=== PATIENT | female | born 1995 | race Caucasian/White ===

== ENCOUNTER 2018-12-23 15:23 | Emergency (ER) | payer MEDICAID, OTHER ==
[~2018-12-23] VITALS: Ht 170.1 cm; Wt 110.0 kg
--- NOTE | 2018-12-23 16:16 | ED Trauma-Multisystem ---
General Chief Complaint: Trauma-Non Activation Stated Complaint: FALL/BACK PAIN Nursing Triage Note: Pt reports falling down approx 8 stairs this morning c/o mid back pain. Denies LOC Source of Information: Patient Exam Limitations: No Limitations History of Present Illness Date Seen by Provider: Dec 23, 2018 Time Seen by Provider: 16:15 Initial Comments To ER with reports of midline thoracic pain and headache. She fell down about 8 steps this morning. No other complaints of pain or injury. No vomiting no nausea no dizziness no loss of consciousness Occurred: Just Prior to Arrival Severity: Moderate Pain/Injury Location: Back Method of Injury: Fall Modifying Factors: Movement Loss of Consciousness: No Loss of Consciousness Associated Symptoms (Fall): Headache; No Neck Pain Allergies and Home Medications Allergies Coded Allergies: No Known Drug Allergies (Unverified , 12/23/18) Home Medications Methocarbamol 750 Mg Tablet, 750 MG PO Q4H PRN for BACK PAIN Prescribed by: OPAL SCOTT on 12/23/181656 Naproxen 500 Mg Tablet, 500 MG PO BID Prescribed by: OPAL SCOTT on 12/23/181656 Patient Home Medication List Home Medication List Reviewed: Yes Review of Systems Review of Systems Constitutional: see HPI Eyes: No Symptoms Reported Ears: No Symptoms Reported Nose: No Symptoms Reported Mouth: No Symptoms Reported Throat: No Symptoms to Report Respiratory: no symptoms reported Cardiovascular: No Symptoms Reported Genitourinary: no symptoms reported Musculoskeletal: no symptoms reported Skin: see HPI Psychiatric/Neurological: See HPI Past Sdlkexe-Ujimct-Qaotmk Hx Patient Social History Alcohol Use: Denies Use Recreational Drug Use: No Smoking Status: Current Everyday Smoker Type Used: Cigarettes 2nd Hand Smoke Exposure: No Recent Foreign Travel: No Contact w/Someone Who Travel: No Recent Infectious Disease Expo: No Recent Hopitalizations: No Seasonal Allergies Seasonal Allergies: No Past Medical History Surgeries: No Respiratory: No Cardiac: Yes Hypertension Neurological: No Genitourinary: No Gastrointestinal: Yes Gastroesophageal Reflux Musculoskeletal: No Endocrine: No HEENT: No Cancer: No Psychosocial: Yes Anxiety, Depression Integumentary: No Physical Exam Vital Signs Vital Signs - First Documented 12/23/18 15:49 Temp 36.8 Pulse 76 Resp 14 B/P (MAP) 118/79 (92) Pulse Ox 97 Height, Weight, BMI Height: '" Weight: lbs. oz. kg; 38.00 BMI Method: General Appearance: No Apparent Distress, WD/WN Head: No Evidence of Injury; No Active Bleeding, No Eddy's Sign, No Contusions Eyes: Bilateral Eye Normal Inspection, Bilateral Eye PERRL, Bilateral Eye EOMI Ears, Nose, Throat: Hearing Grossly Normal, No Evidence of ENT Injury Neck: Full Range of Motion, Normal Inspection; No Tender Lateral, No Tender Midline Respiratory: No Accessory Muscle Use, No Respiratory Distress Gastrointestinal: Normal Bowel Sounds, Non Tender, Soft Neurologic/Psychiatric: Alert, Oriented x3 Skin: Normal Color, Warm/Dry [place] Coma Score Best Eye Response ([place]): (4) Open Spontaneously Best Verbal Response ([place]): (5) Oriented Best Motor Response ([place]): (6) Obeys Commands [place] Total: 15 Progress/Results/Core Measures Results/Orders My Orders Orders - OPAL SCOTT APRN Ct Head Wo (12/23/18 16:13) Ct Thoracic Spine Wo (12/23/18 16:13) Vital Signs/I&O 12/23/18 15:49 Temp 36.8 Pulse 76 Resp 14 B/P (MAP) 118/79 (92) Pulse Ox 97 Blood Pressure Mean: 92 Departure Impression Primary Impression: Fall Qualified Codes: W19.XXXA - Unspecified fall, initial encounter Additional Impression: Back pain Disposition: 01 HOME, SELF-CARE Condition: Stable Admissions Decision to Admit Reason: Admit from ER (General) Departure-Patient Inst. Decision time for Depature: 16:53 Referrals: [facility]/ (PCP) Primary Care Physician CELESTE WYMAN APRN (Family) Primary Care Physician Patient Instructions: Contusion (DC) Scripts Methocarbamol (Robaxin-750) 750 Mg Tablet 750 MG PO Q4H PRN for BACK PAIN, #14 TAB Prov: OPAL SCOTT APRN 12/23/18 Naproxen (Naprosyn) 500 Mg Tablet 500 MG PO BID, #30 TAB 0 Refills Prov: OPAL SCOTT APRN 12/23/18 Work/School Note: Work Release Form Date Seen in the Emergency Department: Dec 23, 2018 Return to Work: Dec 24, 2018 OPAL SCOTT APRN Dec 23, 2018 16:16
--- NOTE | 2018-12-23 16:49 | Diagnostic Imaging Report ---
PROCEDURE: CT head without contrast. TECHNIQUE: Multiple contiguous axial images were obtained through the brain without the use of intravenous contrast. Auto Exposure Controls were utilized during the CT exam to meet ALARA standards for radiation dose reduction. INDICATION: Headache, head trauma. COMPARISON: None. FINDINGS: Ventricles are normal in size, shape, and position. There is no midline shift or mass effect. There is no hemorrhage or evidence of acute ischemia. No extra-axial fluid collection is seen. The bony calvarium is normal. Mastoids and paranasal sinuses are clear. IMPRESSION: Negative CT head. Dictated by: Dictated on workstation # [id number]
--- NOTE | 2018-12-23 16:52 | Diagnostic Imaging Report ---
PROCEDURE: CT thoracic spine without contrast. TECHNIQUE: Multiple axial computerized tomography images were obtained from the base of the thoracic spine to the vertex without intravenous contrast. Auto Exposure Controls were utilized during the CT exam to meet ALARA standards for radiation dose reduction. INDICATION: Fall. Back pain. COMPARISON: None. FINDINGS: Alignment of the thoracic column is normal. There is no subluxation, fracture or degeneration. There is no osseous lesion. No paraspinous mass is seen. The visualized ribs are grossly normal. IMPRESSION: No traumatic malalignment or fracture. Dictated by: Dictated on workstation # [id number]
[2018-12-23] MEDS ORDERED: METH-313 PO (16:57)
[2018-12-23] MEDS ORDERED: NAPR-1071 PO (16:57)
[2018-12-23 17:17] VITALS: BP 118/79
== END 2018-12-23 17:17 | disposition home or self-care (01) ==
LOC: ER 15:24
DX: M54.9 Dorsalgia, unspecified (principal); I10 Essential (primary) hypertension; F41.9 Anxiety disorder, unspecified; F32.9 Major depressive disorder, single episode, unspecified; K21.9 Gastro-esophageal reflux disease without esophagitis; R40.2142 Coma scale, eyes open, spontaneous, at arrival to emergency department; R40.2252 Coma scale, best verbal response, oriented, at arrival to emergency department; R40.2362 Coma scale, best motor response, obeys commands, at arrival to emergency department; F17.210 Nicotine dependence, cigarettes, uncomplicated; W10.9XXA Fall (on) (from) unspecified stairs and steps, initial encounter
CPT/HCPCS: 70450; 72128

== ENCOUNTER 2019-01-24 13:16 | Emergency (ER) | payer MEDICAID ==
[~2019-01-24] VITALS: Ht 170 cm; Wt 109.0 kg
[~2019-01-24 13:16] MED LIST: METH-313 PO; NAPR-1071 PO
--- NOTE | 2019-01-24 13:47 | ED General ---
General Chief Complaint: Dizziness/Syncope Stated Complaint: WEAKNESS / DIZZY Nursing Triage Note: THE PT IS AMBULATORY TO THE ROOM WITHOUT DIFFICULTY. NO DISTRESS IS SEEN ON ARRIVAL LOC IS NORMAL FOR THE PT. THE PT C/O OF DIZZINESS. Nursing Sepsis Screen: No Definite Risk Source of Information: Patient Exam Limitations: No Limitations (VITALY SANCHES STUDENT) History of Present Illness Date Seen by Provider: Jan 24, 2019 Time Seen by Provider: 13:30 Initial Comments Patient presents to the ED today with a 3 day history of dizziness and weakness to the point where she feels she may fall over. She recently was prescribed Propranolol to treat her anxiety but has never been diagnosed with HTN. She states the weakness and dizziness gets worse with any activity but gets better when laying down. She denies any other associated symptoms. Timing/Duration: 3-4 Days Severity: Mild Modifying Factors: improves with Rest Associated Systoms: Weakness, Other (dizziness) (VITALY SANCHES STUDENT) Allergies and Home Medications Allergies Coded Allergies: No Known Drug Allergies (Unverified , 12/23/18) Home Medications Methocarbamol 750 Mg Tablet, 750 MG PO Q4H PRN for BACK PAIN Prescribed by: OPAL SCOTT on 12/23/181656 Naproxen 500 Mg Tablet, 500 MG PO BID Prescribed by: OPAL SCOTT on 12/23/18 1657 Patient Home Medication List Home Medication List Reviewed: Yes (SARAH EDWARDS MD) Review of Systems Review of Systems Constitutional: see HPI EENTM: no symptoms reported Respiratory: no symptoms reported Cardiovascular: no symptoms reported Gastrointestinal: no symptoms reported Genitourinary: no symptoms reported Musculoskeletal: see HPI Skin: no symptoms reported Psychiatric/Neurological: See HPI, Depressed Hematologic/Lymphatic: No Symptoms Reported Immunological/Allergic: no symptoms reported (VITALY SANCHES STUDENT) EENTM: blurred vision, double vision (SARAH EDWARDS MD) All Other Systems Reviewed Negative Unless Noted: Yes (SARAH EDWARDS MD) Past Sqqhxju-Dumerj-Wxsfby Hx Past Med/Social Hx: Reviewed Nursing Past Med/Soc Hx (SARAH EDWARDS MD) Patient Social History Type Used: Cigarettes 2nd Hand Smoke Exposure: No Recent Foreign Travel: No Contact w/Someone Who Travel: No Recent Infectious Disease Expo: No Recent Hopitalizations: No Physical Abuse: No Sexual Abuse: No Mistreated: No Fear: No (VITALY SANCHES STUDENT) Seasonal Allergies Seasonal Allergies: No (VITALY SANCHES STUDENT) Past Medical History Surgeries: No Respiratory: No Cardiac: No Hypertension Neurological: No Genitourinary: No Gastrointestinal: Yes Gastroesophageal Reflux Musculoskeletal: No Endocrine: No HEENT: No Cancer: No Psychosocial: Yes Anxiety, Depression Integumentary: No (VITALY SANCHES STUDENT) Family Medical History Reviewed Nursing Family Hx (SARAH EDWARDS MD) Heart Disease, Cancer, Hypertension (SARAH EDWARDS MD) Physical Exam Vital Signs Vital Signs - First Documented 01/24/19 13:34 Temp 35.2 Pulse 93 Resp 16 B/P (MAP) 123/89 (100) Pulse Ox 98 (SARAH EDWARDS MD) Vital Signs Capillary Refill : Less Than 3 Seconds (VITALY SANCHES) Height, Weight, BMI Height: '" Weight: lbs. oz. kg; 37.00 BMI Method: General Appearance: No Apparent Distress, WD/WN Eyes: Bilateral Eye Normal Inspection, Bilateral Eye PERRL, Bilateral Eye EOMI HEENT: PERRL/EOMI, Pharynx Normal Respiratory: Chest Non Tender, Lungs Clear, Normal Breath Sounds, No Accessory Muscle Use, No Respiratory Distress Cardiovascular: Regular Rate, Rhythm, No Edema, No Gallop, No JVD, No Murmur, Normal Peripheral Pulses Gastrointestinal: Normal Bowel Sounds, No Organomegaly, No Pulsatile Mass, Non Tender, Soft Back: Normal Inspection, No CVA Tenderness, No Vertebral Tenderness Extremity: Normal Inspection Neurologic/Psychiatric: Alert, Oriented x3, No Motor/Sensory Deficits, Normal 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, 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 as Tested Skin: Normal Color, Warm/Dry Lymphatic: No Adenopathy (VITALY SANCHES STUDENT) General Appearance: No Apparent Distress, WD/WN HEENT: PERRL/EOMI, Pharynx Normal Neck: Non Tender, Supple Respiratory: Lungs Clear, Normal Breath Sounds Cardiovascular: Regular Rate, Rhythm, No Murmur Gastrointestinal: Non Tender, Soft Back: Normal Inspection, No CVA Tenderness, No Vertebral Tenderness Extremity: Normal Range of Motion, Non Tender Neurologic/Psychiatric: Alert, Oriented x3, No Motor/Sensory Deficits Skin: Normal Color, Warm/Dry (SARAH EDWARDS MD) Procedures/Interventions Discussed Risk,Benefits: Yes Patient Consents: Yes Position: Lying, L3-4, Right Sterile Technique: Yes Opening Pressure: 28 Fluid Color: clear Size of Disposal Tray Used: Adult difficult due to body habitus and traumatic tap noted. Tolerated procedure (SARAH EDWARDS MD) Progress/Results/Core Measures Suspected Sepsis Recent Fever Within 48 Hours: No Infection Criteria Present: None New/Unexplained Altered Menta: No Sepsis Screen: No Definite Risk SIRS Temperature: Pulse: 93 Respiratory Rate: 16 Blood Pressure 123 /89 Mean: 100 (VITALY SANCHES PA STUDENT) SIRS Laboratory Tests 01/24/19 14:20: White Blood Count 8.2 Laboratory Tests 01/24/19 14:20: Creatinine 0.72, Platelet Count 256, Total Bilirubin 0.3 (SARAH EDWARDS MD) Results/Orders Lab Results Laboratory Tests Test 01/24/19 14:00 01/24/19 14:20 01/24/19 16:20 Range/Units Urine Color YELLOW Urine Clarity CLEAR Urine pH 6 5-9 Urine Specific [place] 1.010 L 1.016-1.022 Urine Protein NEGATIVE NEGATIVE Urine Glucose (UA) NEGATIVE NEGATIVE Urine Ketones NEGATIVE NEGATIVE Urine Nitrite NEGATIVE NEGATIVE Urine Bilirubin NEGATIVE NEGATIVE Urine Urobilinogen NORMAL NORMAL MG/DL Urine Leukocyte Esterase NEGATIVE NEGATIVE Urine RBC (Auto) NEGATIVE NEGATIVE Urine RBC NONE /HPF Urine WBC NONE /HPF Urine Squamous Epithelial Cells RARE /HPF Urine Crystals NONE /LPF Urine Bacteria TRACE /HPF Urine Casts NONE /LPF Urine Mucus NEGATIVE /LPF Urine Culture Indicated NO White Blood Count 8.2 4.3-11.0 10^3/uL Red Blood Count 4.44 4.35-5.85 10^6/uL Hemoglobin 13.1 11.5-16.0 G/DL Hematocrit 40 35-52 % Mean Corpuscular Volume 89 80-99 FL Mean Corpuscular Hemoglobin 30 25-34 PG Mean Corpuscular Hemoglobin Concent 33 32-36 G/DL Red Cell Distribution Width 13.4 10.0-14.5 % Platelet Count 256 130-400 10^3/uL Mean Platelet Volume 11.0 H 7.4-10.4 FL Neutrophils (%) (Auto) 69 42-75 % Lymphocytes (%) (Auto) 23 12-44 % Monocytes (%) (Auto) 7 0-12 % Eosinophils (%) (Auto) 2 0-10 % Basophils (%) (Auto) 1 0-10 % Neutrophils # (Auto) 5.6 1.8-7.8 X 10^3 Lymphocytes # (Auto) 1.9 1.0-4.0 X 10^3 Monocytes # (Auto) 0.5 0.0-1.0 X 10^3 Eosinophils # (Auto) 0.1 0.0-0.3 10^3/uL Basophils # (Auto) 0.0 0.0-0.1 10^3/uL Sodium Level 141 135-145 MMOL/L Potassium Level 4.2 3.6-5.0 MMOL/L Chloride Level 108 H 98-107 MMOL/L Carbon Dioxide Level 22 21-32 MMOL/L Anion Gap 11 5-14 MMOL/L Blood Urea Nitrogen 7 7-18 MG/DL Creatinine 0.72 0.60-1.30 MG/DL Estimat Glomerular Filtration Rate > 60 BUN/Creatinine Ratio 10 Glucose Level 86 70-105 MG/DL Calcium Level 8.9 8.5-10.1 MG/DL Corrected Calcium 8.7 8.5-10.1 MG/DL Total Bilirubin 0.3 0.1-1.0 MG/DL Aspartate Amino Transf (AST/SGOT) 17 5-34 U/L Alanine Aminotransferase (ALT/SGPT) 24 0-55 U/L Alkaline Phosphatase 67 40-136 U/L Total Protein 6.7 6.4-8.2 GM/DL Albumin 4.2 3.2-4.5 GM/DL Thyroid Stimulating Hormone (TSH) 3.04 0.35-4.94 UIU/ML CSF Tube Number 4 CSF Appearance CLEAR CSF Color COLORLESS CSF WBC 0 0-5 CELLS CSF RBC 10 H 0-0 CELLS CSF Lymphocytes % CSF Mononuclear WBCs % CSF Polynuclear WBCs % CSF Glucose 61 50-80 MG/DL CSF Total Protein 28 15-40 MG/DL (SARAH EDWARDS MD) My Orders Orders - SARAH EDWARDS MD Urine Bedside (01/24/19 13:49) Ekg Tracing (01/24/19 13:49) Cbc With Automated Diff (01/24/19 13:49) Comprehensive Metabolic Panel (01/24/19 13:49) Thyroid Stimulating Hormone (10/26/19 13:49) Ua Culture If Indicated (01/24/19 13:49) Ed Iv/Invasive Line Start (01/24/19 13:49) Lactated Ringers (Lr 1000 Ml Iv Solution (01/24/19 13:49) Ct Head Wo (01/24/19 14:09) Lidocaine/Epi 2% 1:100,000 (Xylocaine/Ep (01/24/19 16:00) Csf Cell Count (01/24/19 15:52) Csf Glucose (01/24/19 15:52) Csf Total Protein (01/24/19 15:52) Csf Culture (01/24/19 15:52) Virus Culture (01/24/19 15:52) (SARAH EDWARDS MD) Medications Given in ED Current Medications Medications Dose Ordered Sig/Shade Route Start Time Stop Time Status Last Admin Dose Admin Lactated Ringer's 1,000 ml @ 0 mls/hr Q0M ONCE IV 01/24/19 13:49 01/24/19 13:51 DC 01/24/19 14:18 1,000 MLS/HR Lidocaine/ Epinephrine 20 ml ONCE ONCE INJ 01/24/19 16:00 01/24/19 16:01 DC 01/24/19 16:10 20 ML (SARAH EDWARDS MD) Vital Signs/I&O 01/24/19 13:34 Temp 35.2 Pulse 93 Resp 16 B/P (MAP) 123/89 (100) Pulse Ox 98 (SARAH EDWARDS MD) Vital Signs/I&O Capillary Refill : Less Than 3 Seconds (VITALY SANCHES PA STUDENT) Blood Pressure Mean: 100 Progress Note : Progress Note I have seen and evaluated the patient and agree with above except as indicated. Have directed the plan of care. Patient is here with persistent dizziness, weakness and now with some blurred vision over the last several days. She's had a: No work. She states overall she has not felt well and has been quite fatigued and has been sleeping quite a bit. She is not sure what is going on. She was seen at an urgent care clinic yesterday and started on antibiotics for a urinary tract infection. She has taken 3 doses of that and it has not helped. Denies nausea or vomiting. Feels fatigued. Exam as above. Plan for IV, LR 1 L bolus, labs, EKG and CT head. 1554: CT head negative. Patient's has symptoms of dizziness, headache, blurred vision and meets age and body habitus for potential for pseudotumor cerebri. This is discussed with the patient. Given those tolu rns, lumbar puncture would be indicated. This was discussed with the patient. After thorough discussion of risk and benefits, patient has decided she would like to do lumbar puncture. Consent signed and charted. We will prepare for lumbar puncture. CT head is negative. 1739: Lumbar puncture is complete with some difficulty. This was a traumatic tap and there are a few red cells noted but no white cells and Gram stain is negative. Opening pressure was 28 indicating elevated intracranial pressure and pseudotumor cerebri. I discussed the case with Dr. Clemente at the [facility]. The clinic will see the patient at 1245 on Saturday for evaluation for papilledema. We discussed starting Diamox but will hold pending that evaluation. Patient is feeling better. D izziness has resolved with fluid removal. I did discuss with the patient regarding her weight and she does admit that she had at least a 30 pound weight gain over the past couple months but has recently lost some of that now that she started working again. She is okay with going to the clinic. I also discussed the case with Dr. Pierre on-call for [facility]. She will help establish appointment at [facility] clinic on Saturday as well for follow-up. All of this was discussed with the patient who agrees. Discharged home with return precautions. Patient verbalize understanding instructions and agreement with plan. (SARAH EDWARDS MD) ECG Initial ECG Impression Date: Jan 24, 2019 Initial ECG Impression Time: 14:05 Initial ECG Rate: 72 Initial ECG Rhythm: Normal Sinus Initial ECG Impression: Normal Initial ECG Comparisson: No Previous ECG Available Comment Sinus rhythm with normal axis. No evidence of ST elevation DC. No previous available for comparison. Interpreted by me. (SARAH EDWARDS MD) Diagnostic Imaging Diagonstic Imaging: CT Plain Films/CT/US/NM/MRI: head Comments NAME: BARDALESJERMAINE DSOUZA Radha MED REC#: [id number] PT STATUS: REG ER : 1995 PHYSICIAN: SARAH EDWARDS MD ADMIT DATE: 01/24/19/ER Signed Date of Exam: 01/24/19 CT HEAD WO PROCEDURE: CT head without contrast. TECHNIQUE: Multiple contiguous axial images were obtained through the brain without the use of intravenous contrast. Auto Exposure Controls were utilized during the CT exam to meet ALARA standards for radiation dose reduction. INDICATION: Dizziness for 4 days. History of fall. FINDINGS: The ventricles are normal in size, shape and position. There is no acute parenchymal hemorrhage, edema or mass. There is no extra-axial mass or hemorrhage. There is no skull fracture. IMPRESSION: Normal CT of the head. Dictated by: Dictated on workstation # [id number] Dict: 01/24/19 1447 Trans: 01/24/19 1516 Interpreted by: JANNA VILLALTA MD Electronically signed by: JANNA VILLALTA MD 01/24/19 1516 (SARAH EDWARDS MD) Departure Impression Primary Impression: Idiopathic intracranial hypertension Disposition: 01 HOME, SELF-CARE Condition: Improved Departure-Patient Inst. Decision time for Depature: 17:43 (SARAH EDWARDS MD) Referrals: [facility] [place] (PCP) Primary Care Physician CELESTE WYMAN APRN (Family) Primary Care Physician RHETT BAH OD Patient Instructions: Idiopathic Intracranial Hypertension (DC) Add. Discharge Instructions: All discharge instructions reviewed with patient and/or family. Voiced understanding. Use a low-sodium diet. It is important that you monitor and maintain a healthy weight as this can reduce the concerns related to the idiopathic intracranial hypertension (pseudotumor cerebri). You need to follow-up at the [facility] eye clinic on Saturday at 1245. You need to follow-up at [facility] on Saturday as well. Call the clinic in the morning for appointment time. Do not miss the eye appointment. Return for worse pain, increasing dizziness, vomiting, weakness, breathing problems, fever or other concerns as needed. Copy Copies To 1: RHETT BAH OD Copies To 2: AUTUMN CARDOZA BRODIE PA STUDENT Jan 24, 2019 13:47 SARAH EDWARDS MD Jan 24, 2019 14:15
[2019-01-24] MEDS ORDERED: LACTATED RINGERS 1,000 ML IV ONE (13:49)
[2019-01-24 14:13] LABS: BILIRUBIN,URINE NEGATIVE (NEGATIVE); CLARITY,URINE CLEAR; COLOR,URINE YELLOW; GLUCOSE, URINE (UA) NEGATIVE (NEGATIVE); KETONES,URINE NEGATIVE (NEGATIVE); LEUKOCYTE ESTERASE ,URINE NEGATIVE (NEGATIVE); NITRITE,URINE NEGATIVE (NEGATIVE); PH,URINE 6 (5-9); PROTEIN,URINE NEGATIVE (NEGATIVE)
[2019-01-24 14:22] LABS: BACTERIA,URINE TRACE /HPF; SQUAMOUS EPITHELIAL CELL,UR RARE /HPF
[2019-01-24 14:24] LABS: BASOPHILS % (AUTO) 1 % (0-10); EOSINOPHILS # (AUTO) 0.1 10^3/uL (0.0-0.3); EOSINOPHILS % (AUTO) 2 % (0-10); HEMATOCRIT 40 % (35-52); HEMOGLOBIN 13.1 G/DL (11.5-16.0); LYMPHOCYTES # (AUTO) 1.9 X 10^3 (1.0-4.0); LYMPHOCYTES % (AUTO) 23 % (12-44); MEAN CORPUSCULAR HEMOGLOBIN 30 PG (25-34); MEAN CORPUSCULAR HGB CONC 33 G/DL (32-36); MEAN CORPUSCULAR VOLUME 89 FL (80-99); MONOCYTES # (AUTO) 0.5 X 10^3 (0.0-1.0); MONOCYTES % (AUTO) 7 % (0-12); NEUTROPHILS # (AUTO) 5.6 X 10^3 (1.8-7.8); NEUTROPHILS % (AUTO) 69 % (42-75); PLATELET COUNT 256 10^3/uL (130-400); RED CELL DISTRIBUTION WIDTH 13.4 % (10.0-14.5); WHITE BLOOD COUNT 8.2 10^3/uL (4.3-11.0)
[2019-01-24 14:44] LABS: ALANINE AMINOTRANSFERASE 24 U/L (0-55); ALBUMIN 4.2 GM/DL (3.2-4.5); ALKALINE PHOSPHATASE 67 U/L (40-136); BILIRUBIN,TOTAL 0.3 MG/DL (0.1-1.0); BUN/CREATININE RATIO 10; CALCIUM 8.9 MG/DL (8.5-10.1); CARBON DIOXIDE 22 MMOL/L (21-32); CHLORIDE 108 MMOL/L (98-107); CREATININE SERUM 0.72 MG/DL (0.60-1.30); GFR ESTIMATED > 60; GLUCOSE 86 MG/DL (70-105); POTASSIUM 4.2 MMOL/L (3.6-5.0); SODIUM 141 MMOL/L (135-145); TOTAL PROTEIN 6.7 GM/DL (6.4-8.2)
--- NOTE | 2019-01-24 14:59 | Diagnostic Imaging Report ---
PROCEDURE: CT head without contrast. TECHNIQUE: Multiple contiguous axial images were obtained through the brain without the use of intravenous contrast. Auto Exposure Controls were utilized during the CT exam to meet ALARA standards for radiation dose reduction. INDICATION: Dizziness for 4 days. History of fall. FINDINGS: The ventricles are normal in size, shape and position. There is no acute parenchymal hemorrhage, edema or mass. There is no extra-axial mass or hemorrhage. There is no skull fracture. IMPRESSION: Normal CT of the head. Dictated by: Dictated on workstation # [id number]
[2019-01-24] MEDS ORDERED: LIDOCAINE/EPI 2% 1:100,00 (XYLOCAINE) 20 ML VIAL INJ ONE (16:00)
[2019-01-24 16:43] LABS: APPEARANCE,CSF CLEAR; COLOR,CSF COLORLESS
[2019-01-24 16:44] LABS: CSF TUBE NUMBER 4; RED BLOOD CELL,CSF 10 CELLS (0-0); WHITE BLOOD CELL,CSF 0 CELLS (0-5)
[2019-01-24 17:05] LABS: CSF GLUCOSE 61 MG/DL (50-80); CSF TOTAL PROTEIN 28 MG/DL (15-40)
--- NOTE | 2019-01-24 17:31 | NUR ---
DR EDWARDS NOTIFIED OF LAB CALLING WITH A NO BACTERIA ON GRAM STAIN REPORT.
[2019-01-24 17:45] VITALS: BP 116/67
--- NOTE | 2019-01-25 17:20 | NUR ---
This nurse pulled up pt's chart as pt called requesting a work note. Work note faxed to pt's employer at pt's request.
== END 2019-01-24 17:52 | disposition home or self-care (01) ==
LOC: EDUNIT# 13:16 → ER 13:17
DX: G93.2 Benign intracranial hypertension (principal); I10 Essential (primary) hypertension; K21.9 Gastro-esophageal reflux disease without esophagitis; F41.9 Anxiety disorder, unspecified; F32.9 Major depressive disorder, single episode, unspecified; Z82.49 Family history of ischemic heart disease and other diseases of the circulatory system
CPT/HCPCS: 36415; 70450; 80053; 81000; 82945; 84157; 84443; 84703; 85025; 87070; 87205; 87252; 89051; 93005; 96360

== ENCOUNTER 2019-01-29 20:37 | Emergency (ER) | payer MEDICAID ==
[~2019-01-29] VITALS: Ht 170.2 cm; Wt 108.0 kg
--- NOTE | 2019-01-29 21:14 | ED Headache ---
General Chief Complaint: General Problems/Pain Stated Complaint: DX W/ IDIOPATHIC INTRACRANIAL HT/CONTINUED PAIN Nursing Triage Note: Pt amb to [facility] with c/o headache. Pt reports to have been seen in this ED on 01/24/19 where she was diagnosed with idiopathic intercranial hypertension. Pt reports continued headache. Pt denies visual and balance difficulties. 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 Nursing Sepsis Screen: No Definite Risk Source: patient Exam Limitations: no limitations History of Present Illness Date Seen by Provider: Jan 29, 2019 Time Seen by Provider: 20:48 Initial Comments Patient presents to ER by private conveyance with chief complaint of headache for the past 3-4 days. She's been using ibuprofen and now naproxen as well as Tylenol routinely. She does not give much relief. She was here a week ago seen in the ER and told she might have pseudotumor cerebri. She followed up with her primary care doctor is working on setting her up with a neurologist. They started her on 50 mg topiramate. She has not had much relief from that. She's has a long history of headaches dizziness and falls. She is having occasional visual disturbances but none presently. She saw Dr. Dumont, Optometry and he said she had a hint of papilledema but nothing significant. She is attempting a low sodium diet. She has not lost any weight. Allergies and Home Medications Allergies Coded Allergies: No Known Drug Allergies (Unverified , 12/23/18) Home Medications Methocarbamol 750 Mg Tablet, 750 MG PO Q4H PRN for BACK PAIN Prescribed by: OPAL SCOTT on 12/23/18 165 Naproxen 500 Mg Tablet, 500 MG PO BID Prescribed by: OPAL SCOTT on 12/23/18 165 Patient Home Medication List Home Medication List Reviewed: Yes Review of Systems Review of Systems Constitutional: see HPI; No chills, No fever Eyes: See HPI; Denies Blindness, Denies Blurred Vision, Denies Drainage Ears, Nose, Mouth, Throat: denies ear pain, denies ear discharge Respiratory: No cough, No short of breath Cardiovascular: No chest pain, No edema Gastrointestinal: No constipation, No diarrhea Genitourinary: No discharge, No dysuria Musculoskeletal: No back pain, No joint pain Past Kmuibnh-Largxp-Akmhpc Hx Patient Social History Alcohol Use: Denies Use Recreational Drug Use: No Smoking Status: Current Everyday Smoker Type Used: Cigarettes 2nd Hand Smoke Exposure: No Recent Foreign Travel: No Contact w/Someone Who Travel: No Recent Infectious Disease Expo: No Recent Hopitalizations: No Seasonal Allergies Seasonal Allergies: No Past Medical History Surgeries: No Respiratory: No Cardiac: No Hypertension Neurological: No (Idiopathic Intercranial Hypertension ) Genitourinary: No Gastrointestinal: Yes Gastroesophageal Reflux Musculoskeletal: No Endocrine: No HEENT: No Cancer: No Psychosocial: Yes Anxiety, Depression Integumentary: No Family Medical History Heart Disease, Cancer, Hypertension Physical Exam Vital Signs Vital Signs - First Documented 01/29/19 20:47 Temp 36.9 Pulse 87 Resp 17 B/P (MAP) 133/82 (99) Pulse Ox 99 Capillary Refill : Less Than 3 Seconds Height, Weight, BMI Height: '" Weight: lbs. oz. kg; 37.00 BMI Method: General Appearance: WD/WN, no apparent distress HEENT: PERRL/EOMI, pharynx normal, other (pupils 4 mm bilateral equal reactive to light and accommodation. Round. No papilledema seen on funduscopic exam. No AV nicking.) Neck: non-tender, full range of motion Cardiovascular: normal peripheral pulses, regular rate, rhythm Respiratory: normal breath sounds, no respiratory distress Psychiatric: alert, oriented x 3 Crainal Nerves: normal hearing, normal speech, PERRL Coordination/Gait: normal finger to nose, normal gait Motor/Sensory: no motor deficit, no sensory deficit, no pronator drift Skin: normal color, warm/dry Progress/Results/Core Measures Results/Orders My Orders Orders - ANGI GUO Ketorolac Injection (Toradol Injection) (01/29/19 21:15) Acetazolamide Tablet (Diamox Tablet) (01/29/19 21:15) Acetaminophen Tablet (Tylenol Tablet) (01/29/19 21:15) Vital Signs/I&O 01/29/19 20:47 Temp 36.9 Pulse 87 Resp 17 B/P (MAP) 133/82 (99) Pulse Ox 99 Blood Pressure Mean: 99 POS Progress Progress Note : Time: 21:15 Progress Note Toradol, Tylenol and acetazolamide. We have counseled her extensively on sodium restriction and weight loss diets. Encourage her to follow up with neurology. Departure Impression Primary Impression: Pseudotumor cerebri syndrome Additional Impression: Headache Qualified Codes: R51 - Headache Disposition: 01 HOME, SELF-CARE Condition: Stable Departure-Patient Inst. Decision time for Depature: 21:24 Referrals: [facility] (PCP) Primary Care Physician CELESTE WYMAN APRN (Family) Primary Care Physician Patient Instructions: Idiopathic Intracranial Hypertension (DC) Add. Discharge Instructions: Avoid sodium in your diet. Do not add salt. Do not eat food from boxes or pr ocess food from cans. Do not note from restaurants. Cook fresh food and take it with you. Seek to lose weight by calorie restriction and exercising. Your primary care doctor about referral to a dietitian. Start taking acetazolamide 125 mg daily. Follow-up with primary care. All discharge instructions reviewed with patient and/or family. Voiced understanding. Scripts Acetazolamide (Acetazolamide) 125 Mg Tablet 125 MG PO DAILY for 14 Days, #14 TAB 0 Refills Prov: ANGI GUO 01/29/19 ANGI GUO Jan 29, 2019 21:14 POS
[2019-01-29] MEDS ORDERED: acetaZOLAMIDE 250 MG (DIAMOX) TAB PO ONE (21:15)
[2019-01-29] MEDS ORDERED: ACETAMINOPHEN 500 MG TAB (TYLENOL) PO ONE (21:15)
[2019-01-29] MEDS ORDERED: KETOROLAC 60 MG/2 ML VIAL IM ONE (21:15)
[2019-01-29] MEDS ORDERED: ACET125T2 PO (21:29)
[2019-01-29] MEDS ORDERED: KETOROLAC 30 MG/ML VIAL IM ONE (21:30)
[2019-01-29 21:47] VITALS: BP 133/82
--- OUTSIDE RECORDS SUMMARY | 2019-02-22 16:26 | XMS REPORT | Continuity of Care Document ---
Author Organization Unknown POS Address Unknown SP Phone Unavailable SP Allergies Active Description Code Type Severity POS Reaction Onset Reported/Identified POS to Patient Clinical Status POS Yes No Known Drug Allergies [id number] Drug SP Unknown N/A 12/23/2018 SP SP Medications There is no data. Problems Date Dx Coded Attending Type Code POS Diagnosed By POS 01/24/2019 SARAH EDWARDS MD Ot F32.9 SP MAJOR DEPRESSIVE DISORDER, SINGLE EPISOD SP 01/24/2019 SARAH EDWARDS MD Ot F41.9 SP ANXIETY DISORDER, UNSPECIFIED SP 01/24/2019 SARAH EDWARDS MD Ot G93.2 SP BENIGN INTRACRANIAL HYPERTENSION SP 01/24/2019 SARAH EDWARDS MD Ot I10 SP ESSENTIAL (PRIMARY) HYPERTENSION SP 01/24/2019 SARAH EDWARDS MD Ot K21.9 SP GASTRO-ESOPHAGEAL REFLUX DISEASE WITHOUT SP 01/24/2019 SARAH EDWARDS MD Ot R42 SP DIZZINESS AND GIDDINESS SP 01/24/2019 SARAH EDWARDS MD Ot Z82.49 SP FAMILY HX OF ISCHEM HEART DIS AND OTH DI SP 01/28/2019 SARAH EDWARDS MD Ot F32.9 SP MAJOR DEPRESSIVE DISORDER, SINGLE EPISOD SP 01/28/2019 SARAH EDWARDS MD Ot F41.9 SP ANXIETY DISORDER, UNSPECIFIED SP 01/28/2019 SARAH EDWARDS MD Ot G93.2 SP BENIGN INTRACRANIAL HYPERTENSION SP 01/28/2019 SARAH EDWARDS MD Ot I10 SP ESSENTIAL (PRIMARY) HYPERTENSION SP 01/28/2019 SARAH EDWARDS MD Ot K21.9 SP GASTRO-ESOPHAGEAL REFLUX DISEASE WITHOUT SP 01/28/2019 SARAH EDWARDS MD Ot R42 SP DIZZINESS AND GIDDINESS SP 01/28/2019 SARAH EDWARDS MD Ot Z82.49 SP FAMILY HX OF ISCHEM HEART DIS AND OTH DI SP 02/03/2019 BARRY GUO MDUS J Ot F17.210 SP NICOTINE DEPENDENCE, CIGARETTES, UNCOMPL SP 02/03/2019 ANGI GUO MD J Ot F32. 9 SP DEPRESSIVE DISORDER, SINGLE EPISOD SP 02/03/2019 BARRY GUO MDUS J Ot F41. 9 SP DISORDER, UNSPECIFIED SP 02/03/2019 BARRY GUO MDUS J Ot G93. 2 SP INTRACRANIAL HYPERTENSION SP 02/03/2019 BARRY GUO MDUS J Ot I10 SP (PRIMARY) HYPERTENSION SP 02/03/2019 ANGI GUO MD J Ot K21. 9 SPESOPHAGEAL REFLUX DISEASE WITHOUT SP 02/03/2019 ANGI GUO MD J Ot R51 SP SP 02/03/2019 ANGI GUO MD Ot Z82. 49 SP HX OF ISCHEM HEART DIS AND OTH DI SP 02/07/2019 ANGI GUO MD J Ot F17.210 SP NICOTINE DEPENDENCE, CIGARETTES, UNCOMPL SP 02/07/2019 ANGI GUO MD Ot F32. 9 SP DEPRESSIVE DISORDER, SINGLE EPISOD SP 02/07/2019 BARRY GUO MDUS J Ot F41. 9 SP DISORDER, UNSPECIFIED SP 02/07/2019 ANGI GUO MD Ot G93. 2 SP INTRACRANIAL HYPERTENSION SP 02/07/2019 ANGI GUO MD Ot I10 SP (PRIMARY) HYPERTENSION SP 02/07/2019 BARRY GUO MDUS Patricia Ot K21. 9 SPESOPHAGEAL REFLUX DISEASE WITHOUT SP 02/07/2019 ANGI GUO MD J Ot R51 SP SP 02/07/2019 ANGI GUO MD Ot Z82. 49 SP HX OF ISCHEM HEART DIS AND OTH DI SP Procedures There is no data. Results Test Result Range POS CMP - 10/15/18 12:16 POS GLUCOSE 74 mg/dL 65-99 SP UREA NITROGEN (BUN) 7 mg/dL 7-25 SP CREATININE 0.70 mg/dL 0.50-1.10 SP eGFR NON-AFR. BERMUDIAN 120 mL/min/1.73m2 > OR=60 SP eGFR 140 mL/min/1.73m2 > OR=60 SP BUN/CREATININE RATIO NOT APPLICABLE (calc) 6-22 SP SODIUM 141 mmol/L 135-146 SP POTASSIUM 4.5 mmol/L 3.5-5.3 SP CHLORIDE 105 mmol/L 98-110 SP CARBON DIOXIDE 26 mmol/L 20-32 SP CALCIUM 10.0 mg/dL 8.6-10.2 SP PROTEIN, TOTAL 6.9 g/dL 6.1-8.1 SP ALBUMIN 4.8 g/dL 3.6-5.1 SP GLOBULIN 2.1 g/dL (calc) 1.9-3.7 SP ALBUMIN/GLOBULIN RATIO 2.3 (calc) 1.0-2. 5 SP BILIRUBIN, TOTAL 0.4 mg/dL 0.2-1.2 SP ALKALINE PHOSPHATASE 58 U/L 33-115 SP AST 15 U/L 10-30 SP ALT 21 U/L 6-29 SP GC/CHLAMYDIA (SWAB OR URINE)-RAPID - 10:21 POS CHLAMYDIA TRACHOMATIS RNA, TMA NOT DETECTED NOT DETECTED SP NEISSERIA GONORRHOEAE RNA, TMA NOT DETECTED NOT DETECTED SP COMMENT NRG SP SUREPATH PAP RFX HPV mRNA E6/E7 - 10:21 POS CLINICAL INFORMATION: NRG SP LMP: NRG SP PREV. PAP: NRG SP PREV. BX: NRG SP SOURCE: Cervix NRG SP STATEMENT OF ADEQUACY: NRG SP INTERPRETATION/RESULT: NRG SP CUSTOMER SERVICE COORDINATOR: NRG SP COMMENT NRG SP Complete urinalysis with reflex to cultu re - 01/24/19 14:00 POS Urine color determination YELLOW NRG SP Urine clarity determination CLEAR NR G SP Urine pH measurement by test strip 6 5-9 SP Specific gravity of urine by test strip 1.010 1.016-1.022 SP Urine protein assay by test strip, semi-quantitative NEGATIVE SP NEGATIVE SP Urine glucose detection by automated test strip NE GATIVE SP Erythrocytes detection in urine sediment by light micr oscopy NEGATIVE SP NEGATIVE SP Urine ketones detection by automated test strip NE GATIVE SP Urine nitrite detection by test strip NEGATIVE NEGATIVE SP Urine total bilirubin detection by test strip NEGA TIVE SP Urine urobilinogen measurement by automated test strip (mass/volume) SP NORMAL SP Urine leukocyte esterase detection by dipstick NEG ATIVE SP Automated urine sediment erythrocyte cou nt by microscopy (number/high power SP NONE NRG SP Automated urine sediment leukocyte count by microscopy (number/high power field) SP NONE NRG SP Bacteria detection in urine sediment by light microsco py TRACE SP NRG SP Squamous epithelial cells detection in u rine sediment by light microscopy SP RARE NRG SP Crystals detection in urine sediment by light microsco py NONE SP NRG SP Casts detection in urine sediment by light microscopy NONE SP Mucus detection in urine sediment by light microscopy NEGATIVE SP NRG SP Complete urinalysis with reflex to culture NO NRG SP Complete blood count (CBC) with automate d white blood cell (WBC) differential - POS 14:20 Blood leukocytes automated count (number/volume) 8.2 10*3/uL POS 4.3-11.0 SP Blood erythrocytes automated count (number/volume) 4.44 10*6/uL SP 4.35-5.85 SP Venous blood hemoglobin measurement (mass/volume) 13.1 g/dL SP16.0 Blood hematocrit (volume fraction) 40 % 35-52 SP Automated erythrocyte mean corpuscular volume 89 [ foz_us] SP99 Automated erythrocyte mean corpuscular h emoglobin (mass per erythrocyte) SP 30 pg 25-34 SP Automated erythrocyte mean corpuscular h emoglobin concentration measurement SP 33 g/dL 32-36 SP Automated erythrocyte distribution width ratio 13. 4 % 10.0- SP Automated blood platelet count (count/volume) 256 10*3/uL SP400 Automated blood platelet mean volume measurement 11.0 [foz_us] SP 7.4-10.4 SP Automated blood neutrophils/100 leukocytes 69 % 42-75 SP Automated blood lymphocytes/100 leukocytes 23 % 12-44 SP Blood monocytes/100 leukocytes 7 % 0-12 SP Automated blood eosinophils/100 leukocytes 2 % 0-10 SP Automated blood basophils/100 leukocytes 1 % 0-10 SP Blood neutrophils automated count (number/volume) 5.6 10*3 SP7.8 Blood lymphocytes automated count (number/volume) 1.9 10*3 SP4.0 Blood monocytes automated count (number/volume) 0. 5 10*3 SP1.0 Automated eosinophil count 0.1 10*3/uL 0 .0-0.3 SP Automated blood basophil count (count/volume) 0.0 10*3/uL SP0.1 Comprehensive metabolic panel - 01/24/19 14:20 POS Serum or plasma sodium measurement (moles/volume) 141 mmol/L SP 135-145 SP Serum or plasma potassium measurement (moles/volume) 4.2 mmol/L SP 3.6-5.0 SP Serum or plasma chloride measurement (moles/volume) 108 mmol/L SP 98-107 SP Carbon dioxide 22 mmol/L 21-32 SP Serum or plasma anion gap determination (moles/volume) 11 mmol/L SP 5-14 SP Serum or plasma urea nitrogen measurement (mass/volume ) 7 mg/dL SP 7-18 SP Serum or plasma creatinine measurement (mass/volume) 0.72 mg/dL SP 0.60-1.30 SP Serum or plasma urea nitrogen/creatinine mass ratio 10 NRG SP Serum or plasma creatinine measurement w ith calculation of estimated glomerular SP rate > NRG SP Serum or plasma glucose measurement (mass/volume) 86 mg/dL SP105 Serum or plasma calcium measurement (mass/volume) 8.9 mg/dL SP10.1 Serum or plasma total bilirubin measurement (mass/volu me) 0.3 mg/dL SP 0.1-1.0 SP Serum or plasma alkaline phosphatase sheree surement (enzymatic activity/volume) SP 67 U/L 40-136 SP Serum or plasma aspartate aminotransfera se measurement (enzymatic SP 17 U/L 5-34 SP Serum or plasma alanine aminotransferase measurement (enzymatic activity/volume) SP 24 U/L 0-55 SP Serum or plasma protein measurement (mass/volume) 6.7 g/dL SP8.2 Serum or plasma albumin measurement (mass/volume) 4.2 g/dL SP4.5 CALCIUM CORRECTED 8.7 mg/dL 8.5-10.1 SP THYROID STIMULATING HORMONE - 01/24/19 1 4:20 POS THYROID STIMULATING HORMONE 3.04 u[iU]/mL 0.35-4.94 SP Cerebrospinal fluid cell count - 9 16:20 POS Cerebrospinal fluid appearance description CLEAR NRG SP Cerebrospinal fluid color identification COLORLESS NRG SP Cerebrospinal fluid leukocytes count (number/volume) 0 % 0-5 SP Cerebrospinal fluid erythrocytes count (number/volume) 10 % SP0 Manual cerebrospinal fluid lymphocytes/100 leukocytes TNP SP Manual cerebrospinal fluid mononuclear cells/100 leuko cytes TNP SP NRG SP Manual cerebrospinal fluid polymorphonuclear cells/100 leukocytes TNP SP NRG SP Cerebrospinal fluid cell count on specimen from last t ube collected 4 SP NRG SP Cerebrospinal fluid glucose measurement (mass/volume) - 01/24/19 16:20 POS Cerebrospinal fluid glucose measurement (mass/volume) 61 mg/dL SP 50-80 SP Cerebrospinal fluid protein measurement (mass/volume) - 01/24/19 16:20 POS Cerebrospinal fluid protein measurement (mass/volume) 28 mg/dL SP 15-40 SP Gram stain microscopy - 01/24/19 16:20 POS Gram stain microscopy REPORT CALLED TO IE IN ED AT 1730 BY LACY/KD SP NRG SP Bacterial cerebrospinal fluid culture - 01/24/19 16:20 POS Bacterial cerebrospinal fluid culture NG NRG SP Virus identification by culture - 16:20 POS QUANTITY OF GROWTH . NRG SP Virus identification by culture PROGRESS NRG SP Encounters ACCT No. Visit Date/Time Discharge Status POS Pt. Type Provider Facility Loc./Un it POS Complaint POS [id number] 01/23/2019 08:10:00 01/23/2019 23:59: 59 CLS SP Outpatient CELESTE WYMAN [facility] SP [id number] 10/22/2018 09:00:00 Document SPRegistration SP [id number] 10/15/2018 11:20:00 Document SPRegistration SP [id number] 02/17/2019 17:32:00 18:27:00 SP DIS Emergency OPAL SCOTT APRN [facility] ER DIZZINESS,WEAKNESS SP [id number] 01/29/2019 20:38:00 21:48:00 SP DIS Outpatient ANGI GUO MD 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
== END 2019-01-29 21:48 | disposition home or self-care (01) ==
LOC: EDUNIT# 20:37 → ER 20:38
DX: G93.2 Benign intracranial hypertension (principal); I10 Essential (primary) hypertension; F41.9 Anxiety disorder, unspecified; F32.9 Major depressive disorder, single episode, unspecified; K21.9 Gastro-esophageal reflux disease without esophagitis; F17.210 Nicotine dependence, cigarettes, uncomplicated; Z82.49 Family history of ischemic heart disease and other diseases of the circulatory system
CPT/HCPCS: 96372; 99284

== ENCOUNTER 2019-02-17 17:30 | Emergency (ER) | payer MEDICAID ==
[~2019-02-17] VITALS: Ht 170 cm; Wt 111.0 kg
[~2019-02-17 17:30] MED LIST changes: +ACET125T2 PO
--- NOTE | 2019-02-17 18:11 | ED General ---
General Chief Complaint: Dizziness/Syncope Stated Complaint: DIZZINESS,WEAKNESS Nursing Triage Note: PT STATES BEING DIZZY AGAIN, WAS SEEN HERE ABOUT A MONTH AGO, IS WAITING TO SEE A NEUROLOGIST. HAS HAD FLUID DRAINED FROM HER SPINAL CORD IN THE PAST. Nursing Sepsis Screen: No Definite Risk Source of Information: Patient Exam Limitations: No Limitations History of Present Illness Date Seen by Provider: Feb 17, 2019 Time Seen by Provider: 18:11 Initial Comments To ER with reports of dizziness and slight frontal headache. She was seen here a bout a month ago, diagnosed with idiopathic intracranial hypertension following symptoms consistent with that and a diagnostic lumbar puncture with opening pressure of 28. She was then seen here a few weeks ago, on 01/30/19 and given a prescription for 14 days of acetazolamide. She reports that after 3 days she had improvement in symptoms and after about 5 days she had almost complete resolution of her symptoms. She comes back in today with being out of her acetazolamide and recurrence of dizziness and slight frontal headache. She is scheduled to see neurology in [place] on 12 March, that the soonest she could be seen. She states that she has kids at home and a job and cannot continue to miss work due to her symptoms and would like this refilled. Timing/Duration: 2-3 Days Severity: Moderate Associated Systoms: Headaches, Other Allergies and Home Medications Allergies Coded Allergies: No Known Drug Allergies (Unverified , 12/23/18) Home Medications Acetazolamide 125 Mg Tablet, 125 MG PO DAILY Prescribed by: ANGI GUO on 01/29/192128 Methocarbamol 750 Mg Tablet, 750 MG PO Q4H PRN for BACK PAIN Prescribed by: OPAL SCOTT on 12/23/181656 Naproxen 500 Mg Tablet, 500 MG PO BID Prescribed by: OPAL SCOTT on 12/23/181656 Patient Home Medication List Home Medication List Reviewed: Yes Review of Systems Review of Systems Constitutional: see HPI EENTM: see HPI Respiratory: no symptoms reported Cardiovascular: no symptoms reported Genitourinary: no symptoms reported Musculoskeletal: no symptoms reported Skin: no symptoms reported Psychiatric/Neurological: No Symptoms Reported, See HPI, Headache Hematologic/Lymphatic: No Symptoms Reported Immunological/Allergic: no symptoms reported Past Ddhbfwg-Qlrgpg-Mqkhmx Hx Patient Social History Alcohol Use: Denies Use Recreational Drug Use: No Smoking Status: Current Everyday Smoker Type Used: Cigarettes 2nd Hand Smoke Exposure: No Recent Foreign Travel: No Contact w/Someone Who Travel: No Recent Infectious Disease Expo: No Recent Hopitalizations: No Physical Abuse: No Sexual Abuse: No Mistreated: No Fear: No Seasonal Allergies Seasonal Allergies: Yes Past Medical History Surgeries: Yes (ECTOPIC ) Adenoidectomy, Gallbladder, Tonsillectomy, Tubal Ligation Respiratory: No Cardiac: No Hypertension Neurological: Yes (Idiopathic Intercranial Hypertension ) Headaches /Migraines : No Last Menstrual Period: Feb 16, 2019 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 oz. kg; 38.00 BMI Method: General Appearance: No Apparent Distress, WD/WN, Other (no nystagmus well, Iis alert and oriented person pleasant) Eyes: Bilateral Eye Normal Inspection, Bilateral Eye PERRL, Bilateral Eye EOMI HEENT: PERRL/EOMI, TMs Normal Neck: Full Range of Motion, Normal Inspection Respiratory: Chest Non Tender, Lungs Clear, No Accessory Muscle Use Cardiovascular: Regular Rate, Rhythm, Normal Peripheral Pulses Gastrointestinal: Normal Bowel Sounds, Non Tender, Soft Extremity: Normal Capillary Refill, Normal Inspection Neurologic/Psychiatric: Alert, Oriented x3 Skin: Normal Color, Warm/Dry Progress/Results/Core Measures Suspected Sepsis Recent Fever Within 48 Hours: No Infection Criteria Present: None New/Unexplained Altered Menta: No Sepsis Screen: No Definite Risk SIRS Temperature: Pulse: 82 Respiratory Rate: 18 Blood Pressure 117 /77 Mean: 90 Results/Orders Vital Signs/I&O 02/17/19 17:42 Temp 36.7 Pulse 82 Resp 18 B/P (MAP) 117/77 (90) Pulse Ox 97 O2 Delivery Room Air Capillary Refill : Less Than 3 Seconds Blood Pressure Mean: 90 POS Departure Impression Primary Impression: Idiopathic intracranial hypertension Disposition: 01 HOME, SELF-CARE Condition: Stable Departure-Patient Inst. Decision time for Depature: 18:16 Referrals: [facility] (PCP) Primary Care Physician CELESTE WYMAN APRN (Family) Primary Care Physician Patient Instructions: Idiopathic Intracranial Hypertension (Pseudotumor Cerebri) Scripts Acetazolamide (Acetazolamide) 250 Mg Tablet 250 MG PO DAILY, #30 TAB Prov: OPAL SCOTT APRN 02/17/19 OPAL SCOTT APRN Feb 17, 2019 18:11 POS
[2019-02-17] MEDS ORDERED: ACET250T3 PO (18:21)
[2019-02-17 18:26] VITALS: BP 117/77
== END 2019-02-17 18:27 | disposition home or self-care (01) ==
LOC: EDUNIT# 17:30 → ER 17:32
DX: G93.2 Benign intracranial hypertension (principal); I10 Essential (primary) hypertension; G43.909 Migraine, unspecified, not intractable, without status migrainosus; F41.9 Anxiety disorder, unspecified; F32.9 Major depressive disorder, single episode, unspecified; K21.9 Gastro-esophageal reflux disease without esophagitis; F17.210 Nicotine dependence, cigarettes, uncomplicated; Z87.440 Personal history of urinary (tract) infections; Z90.89 Acquired absence of other organs; Z98.51 Tubal ligation status; Z82.49 Family history of ischemic heart disease and other diseases of the circulatory system
CPT/HCPCS: 99283

== ENCOUNTER 2020-08-29 18:16 | Emergency (ER) | payer MEDICAID ==
[~2020-08-29] VITALS: Ht 173 cm; Wt 111.0 kg
[~2020-08-29 18:16] MED LIST changes: +ACET250T3 PO
--- NOTE | 2020-08-29 19:11 | ED Cough/URI ---
General Chief Complaint: Cough/Cold/Flu Symptoms Stated Complaint: COUGH X5 DAYS,RIB PAIN,HEADACHE Nursing Triage Note: C/O COUGH X 5 DAYS. REPORTS BEING TREATED WITH STEROIDS AND ZITHROMAX WITHOUT IMPROVEMENT Sepsis Screen: No Definite Risk Source: patient Exam Limitations: no limitations (IRISH MARTÍNEZ) History of Present Illness Date Seen by Provider: August 29, 2020 Time Seen by Provider: 18:30 Initial Comments Pt presents to ED via POV with complaint of cough and rib pain. She states that 5 days ago she started feeling sick with clear productive cough, lower anterior rib/chest pain, headache, vomiting w/o nausea, and congestion. She states her lower rib pain is 2/10 at rest and 8/10 with coughing with a pressure sensation. She has taken Tylenol 500mg at 11AM and Ibuprofen 800mg last night with minimal relief. She was seen 5 days ago at the onset of her symptoms and was prescribed prednisone and azithromycin; she finished both courses with no improvement. She has also been taking Mucinex, Flonase, and Claritin. She denies fevers, nausea, abd pain, dysuria. Timing/Duration: week (onset 5 days ago) Severity/Quality: dry cough Modifying Factors: Improves With Coughing (lower rib pain exacerbated by cough) Associated Symptoms: chest pain/soreness (lower anterior rib pain), cough, facial pain (frontal sinus pain/pressure), fever/chills (chills, no fever), headache, sore throat (IRISH MARTÍNEZ) Allergies and Home Medications Allergies Coded Allergies: No Known Drug Allergies (Unverified , 12/23/18) Home Medications Acetazolamide 125 Mg Tablet, 125 MG PO DAILY Prescribed by: ANGI GUO on 01/29/192128 Acetazolamide 250 Mg Tablet, 250 MG PO DAILY Prescribed by: OPAL SCOTT on 02/17/19 182 Methocarbamol 750 Mg Tablet, 750 MG PO Q4H PRN for BACK PAIN Prescribed by: OPAL SCOTT on 12/23/18 165 Naproxen 500 Mg Tablet, 500 MG PO BID Prescribed by: OPAL SCOTT on 12/23/181656 Patient Home Medication List Home Medication List Reviewed: Yes (IRISH MARTÍNEZ) Review of Systems Review of Systems Constitutional: chills; No fever, No weakness EENTM: No hearing loss, No ear pain, No vision loss Respiratory: cough; No hemoptysis; phlegm; No short of breath Cardiovascular: chest pain (lower anterior rib pressure); No edema, No palpitations Gastrointestinal: No abdominal pain, No constipation, No diarrhea, No nausea; vomiting Genitourinary: No dysuria, No hematuria Musculoskeletal: No back pain, No joint pain, No muscle pain Skin: No change in color, No rash Psychiatric/Neurological: Headache; Denies Numbness, Denies Paresthesia, Denies Tingling (IRISH MARTÍNEZ) All Other Systems Reviewed Negative Unless Noted: Yes (IRISH MARTÍNEZ [employer] [facility]) Past Xdsizco-Ybszax-Jwnxiu Hx Past Med/Social Hx: Reviewed Nursing Past Med/Soc Hx (IRISH MARTÍNEZ) Patient Social History Alcohol Use: Denies Use Smoking Status: Current Everyday Smoker (1ppd) Type Used: Cigarettes 2nd Hand Smoke Exposure: No Recent Infectious Disease Expo: No Recent Hopitalizations: No (IRISH MARTÍNEZ) Seasonal Allergies Seasonal Allergies: Yes (IRISH MARTÍNEZ) Past Medical History Surgeries: Yes (ECTOPIC ) Adenoidectomy, Gallbladder, Tonsillectomy, Tubal Ligation Respiratory: No Cardiac: No Hypertension Neurological: Yes (Idiopathic Intercranial Hypertension ) Headaches /Migraines 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 oz. kg; 37.00 BMI Method: General Appearance: WD/WN, no apparent distress Eyes: Bilateral Eye Normal Inspection, Bilateral Eye PERRL, Bilateral Eye EOMI HEENT: PERRL/EOMI, normal ENT inspection, TMs normal Neck: non-tender, full range of motion, supple, normal inspection Respiratory: chest non-tender, lungs clear, normal breath sounds, no respiratory distress, no accessory muscle use, other (borborygmi in lung roy) Cardiovascular: normal peripheral pulses, no edema, no murmur, tachycardia (100's) Gastrointestinal: normal bowel sounds, non tender, soft; No distended, No guarding Extremities: normal range of motion, non-tender, normal inspection Neurologic/Psychiatric: no motor/sensory deficits, alert, normal mood/affect, oriented x 3 Skin: normal color, warm/dry Lymphatic: no adenopathy (IRISH MARTÍNEZ STUDENT) Progress/Results/Core Measures Suspected Sepsis Recent Fever Within 48 Hours: No Infection Criteria Present: None New/Unexplained Altered Menta: No Sepsis Screen: No Definite Risk SIRS Temperature: Pulse: 106 Respiratory Rate: 18 Blood Pressure 136 /88 Mean: 104 (IRISH MARTÍNEZ STUDENT) Results/Orders My Orders Orders - ANGI GUO Chest Pa/Lat (2 View) (08/29/20 18:49) (ANGI GUO) Vital Signs/I&O 08/29/20 18:21 Temp 36.5 Pulse 106 Resp 18 B/P (MAP) 136/88 (104) Pulse Ox 95 (ANGI GUO) Vital Signs/I&O Capillary Refill : Less Than 3 Seconds (IRISH MARTÍNEZ STUDENT) Blood Pressure Mean: 104 Progress Note : Time: 19:20 Progress Note I attest that I saw this patient alongside the medical student and agree with his documented history, physical exam and review of systems except as otherwise noted. (ANGI GUO) Diagnostic Imaging Diagonstic Imaging: Xray Plain Films/CT/US/NM/MRI: chest Comments NAME: JERMAINE BARDALES MED REC#: [id number] PT STATUS: REG ER : 1995 PHYSICIAN: ANGI GUO MD ADMIT DATE: 08/29/20/ER Draft Date of Exam:08/29/20 CHEST PA/LAT (2 VIEW) INDICATION: Cough and headache. PA and lateral views of the chest were obtained. FINDINGS: The heart size, mediastinal configuration, and pulmonary vascularity are within normal limits. There is no pleural effusion, pneumothorax, or pneumonia. The osseous structures are unremarkable. IMPRESSION: No acute cardiopulmonary abnormality. Dictated on workstation # [id number] Dict: 08/29/201912 Trans: 08/29/201914 [facility] [id number] Interpreted by: EUSEBIA CLEMENT MD Electronically signed by: Reviewed: Reviewed by Me (ANGI GUO) Departure Impression Primary Impression: Viral upper respiratory tract infection with cough Additional Impression: Pleurisy Disposition: HOME, SELF-CARE Condition: Stable Departure-Patient Inst. Decision time for Depature: 19:18 (ANGI GUO) Referrals: [facility] (PCP/Family) Primary Care Physician Patient Instructions: Viral Upper Respiratory Infection, Adult (DC), Cough in Adults, Pleuritic Chest Pain Add. Discharge Instructions: You have an infection which is likely caused by a virus in your upper respiratory tract which is causing the bronchioles to become inflamed and therefore your cough. Use vapor rubs such as Vicks or Mentholatum to help reduce your cough. Wbrf-jgu-mqaifaa cough medicine may also be helpful. Tylenol 1000 mg every 8 hours as necessary for chest pain. Ibuprofen 800 mg every 8 hours on a scheduled basis for the next week to help reduce the inflammation and pain in your chest. Alternatively instead of ibuprofen you may use naproxen 2 tablets twice a day. If you develop reflux, indigestion, stomach pain then stop using the ibu profen/naproxen and see your doctor. If your symptoms persist for more than 2 weeks then you should call and follow- up with your primary care doctor. All discharge instructions reviewed with patient and/or family. Voiced understanding. Scripts Loratadine/Pseudoephedrine (Claritin-D 24 Hour Tablet) 1 Each Tab.er.24h 1 EACH PO DAILY for 14 Days, #14 TAB 0 Refills Prov: ANGI GUO 08/29/20 IRISH MARTÍNEZ MED STUDENT August 29, 2020 19:11 ANGI GUO August 29, 2020 19:20
--- NOTE | 2020-08-29 19:15 | Diagnostic Imaging Report ---
INDICATION: Cough and headache. PA and lateral views of the chest were obtained. FINDINGS: The heart size, mediastinal configuration, and pulmonary vascularity are within normal limits. There is no pleural effusion, pneumothorax, or pneumonia. The osseous structures are unremarkable. IMPRESSION: No acute cardiopulmonary abnormality. Dictated by: Dictated on workstation # [id number]
[2020-08-29 19:29] VITALS: BP 136/88
[2020-08-29] MEDS ORDERED: LORA-877 PO (19:29)
== END 2020-08-29 19:30 | disposition home or self-care (01) ==
LOC: EDUNIT# 18:16 → ER 18:17
DX: J06.9 Acute upper respiratory infection, unspecified (principal); R09.1 Pleurisy; R00.0 Tachycardia, unspecified; F17.210 Nicotine dependence, cigarettes, uncomplicated
CPT/HCPCS: 71046

== ENCOUNTER 2021-03-28 20:53 | Emergency (ER) | payer MEDICAID ==
[~2021-03-28] VITALS: Ht 170.2 cm; Wt 129.3 kg
[~2021-03-28 20:53] MED LIST changes: +LORA-877 PO
--- OUTSIDE RECORDS SUMMARY | 2021-03-28 21:04 | XMS REPORT | Clinical Summary ---
Author Author [facility] Organization [facility] Address Unknown Phone Unavailable Care Team Providers Care Editor Greeting Card Name Role Phone DonnieBlaire KATHRINE PCP Source Comments Some departments are not documenting in the electronic medical record. If you d o not see the information that you expected, contact Release of Information in [facility] [email or web address] Information Management department at [phone] for further assistan ce in locating additional records.[facility] Allergies No known active allergies Medications End Date Status Medication Sig Dispensed Refills Start Date Active omeprazole DR (PRILOSEC) Take 20 mg by 0 20 mg capsule mouth daily before breakfast. Active vilazodone (VIIBRYD) 40 every 24 0 mg tablet hours. Active varenicline (CHANTIX as directed 0 STARTING MONTH BOX) 0.5 1 mg (11)- 1 mg (42) tablet Active ondansetron (ZOFRAN ODT) 1 tablet on 0 4 mg rapid dissolve the tongue tablet and allow to dissolve Active gabapentin (NEURONTIN) 0 600 mg tablet 1 Active loratadine (CLARITIN PO) 0 Active topiramate (TOPAMAX) 25 Take 25mg at 120 tablet 5 0 mg tablet PM for 1 wk 1 then 25mg AM and PM for 1wk then 50mg at PM and 25mg at AM for 1wk then 50mg AM and PM Active Problems Problem Noted Date Migraine without aura and without status migrainosus, not intractable 09/24/2019 IIH (idiopathic intracranial hypertension) 9 Medical History Medical History Date Comments IIH (idiopathic intracranial hypertension) Depression GERD (gastroesophageal reflux disease) Family History Medical History Relation Name Comments Epilepsy Other Pcousin Relation Name Status Comments Other Pcousin Alive Social History Date Tobacco Use Types Packs/Day Years Used Current Every Day Smoker Smokeless Tobacco: Current User Tobacco Cessation: Counseling Given: No Comments Alcohol Use Standard Drinks/Week Not Currently 0 (1 standard drink = 0.6 o z pure alcohol) Sex Assigned at Date Recorded Not on file Last Filed Vital Signs Reading Time Taken Comments Vital Sign 132/72 09/15/2020 10:37 AM CDT Blood Pressure 101 09/15/2020 10:37 AM CDT Pulse - - Temperature - - Respiratory Rate 98% 09/15/2020 10:37 AM CDT Oxygen Saturation - - Inhaled Oxygen Concentration - - Weight 170.2 cm (5' 7") 09/15/2020 10:37 AM CDT Height - - Body Mass Index Plan of Treatment Health Maintenance Due Date Last Done Comments HIV SCREENING 02/19/2008 DTAP/TDAP VACCINES (1 - 2011 Tdap) HEPATITIS C SCREENING 2011 PHYSICAL (COMPREHENSIVE) 2011 EXAM CERVICAL CANCER SCREENING 2014 INFLUENZA VACCINE 10/30/2020 Results Not on filefrom Last 3 Months Insurance Type Payer Benefit Subscriber ID Effective Phone Address Plan / Dates Group Medicaid [employer] [place] [employer] [id number] 2018-P [address] [phone] (Home) [place] [address] 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
--- NOTE | 2021-03-28 21:51 | Diagnostic Imaging Report ---
EXAMINATION: Chest radiograph, portable AP view. DATE: 03/28/2021 9:34 PM INDICATION: 26-year-old female, COVID positive. Cough and fever. COMPARISON: August 29, 2020. FINDINGS: Heart size and mediastinal contours are unremarkable. There is no identified pneumothorax. There is no large pleural effusion. There is no identified focal airspace consolidation. IMPRESSION: No identified acute cardiopulmonary abnormality. Dictated by: Dictated on workstation # [id number]
[2021-03-28] MEDS ORDERED: DEXA6TAB6 PO (21:56)
[2021-03-28] MEDS ORDERED: FLUT9.9S NS (21:56)
--- NOTE | 2021-03-28 21:56 | ED General ---
General Stated Complaint: COVID POSITIVE,SOB,FEVER,CHILLS,L FACE SWOLLEN Source of Information: Patient History of Present Illness Date Seen by Provider: Mar 28, 2021 Time Seen by Provider: 21:16 Initial Comments PT ARRIVES VIA POV FROM HOME PT BEGAN HAVING DIARRHEA ON Saturday03/25/21 BEGAN HAVING OTHER SYMPTOMS 03/26/21 HAS HAD COUGH/CONGESTION FEELS A LITTLE SHORT OF BREATH, BUT MOSTLY ONLY WHEN WEARING A MASK--STATES SHE HAS BEEN WEARING A MASK AT HOME C/O HEADACHE C/O BODY ACHES C/O LOSS OF TASTE AND SMELL C/O FEVER UP TO 102, BUT NO FEVER TODAY. HAS HAD SOME CHILLS SLIGHT NAUSEA, NO VOMITING. HAS BEEN EATING AND DRINKING WELL C/O ONLY HAVING NASAL DRAINAGE FROM RIGHT NOSTRIL, AND LEFT SIDE OF FACE IS SWOLLEN AND A LITTLE SORE WENT TO [facility] YESTERDAY AND TESTED + FOR COVID, DID 2 OF HER 3 CHILDREN NO RX'S GIVEN PT IS SCHEDULED TO HAVE BAM/MAB INFUSION ON Saturday03/30/21 PT TOOK ADVIL 2 HOURS AGO HAS NOT TAKEN ANYTHING ELSE FOR SYMPTOMS PCP: [facility] Allergies and Home Medications Allergies Coded Allergies: No Known Drug Allergies (Unverified , 12/23/18) Patient Home Medication List Home Medication List Reviewed: Yes Acetazolamide (Acetazolamide) 125 Mg Tablet, 125 MG PO DAILY Prescribed by: ANGI GUO on 01/29/192128 Acetazolamide (Acetazolamide) 250 Mg Tablet, 250 MG PO DAILY Prescribed by: OPAL SCOTT on 02/17/191820 Dexamethasone (Decadron) 6 Mg Tablet, 6 MG PO DAILY Prescribed by: KATHYA GIL on 03/28/212155 Fluticasone Propionate (Flonase Allergy Relief) 9.9 Ml [place].susp, 2 SPRAY NS DAILY Prescribed by: KATHYA GIL on 03/28/212155 Loratadine/Pseudoephedrine (Claritin-D 24 Hour Tablet) 1 Each Tab.er.24h, 1 EACH PO DAILY Prescribed by: ANGI GUO on 08/29/201930 Methocarbamol (Robaxin-750) 750 Mg Tablet, 750 MG PO Q4H PRN for BACK PAIN Prescribed by: OPAL SCOTT on 12/23/181656 Naproxen (Naprosyn) 500 Mg Tablet, 500 MG PO BID Prescribed by: OPAL SCOTT on 12/23/18 4079 Review of Systems Review of Systems Constitutional: see HPI EENTM: see HPI Respiratory: see HPI Cardiovascular: no symptoms reported Gastrointestinal: see HPI Genitourinary: no symptoms reported Musculoskeletal: see HPI Skin: no symptoms reported Psychiatric/Neurological: See HPI, Headache Hematologic/Lymphatic: No Symptoms Reported Immunological/Allergic: no symptoms reported Past Fszkoha-Rbgpuf-Hrfkut Hx Patient Social History Tobacco Use?: No Substance use?: No Alcohol Use?: No Seasonal Allergies Seasonal Allergies: Yes Past Medical History Surgeries: Yes (ECTOPIC ) Adenoidectomy, Gallbladder, Tonsillectomy, Tubal Ligation Respiratory: No Cardiac: Yes Hypertension Neurological: Yes (Idiopathic Intercranial Hypertension ) 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 oz. kg; 37.00 BMI Method: General Appearance: No Apparent Distress, WD/WN, Obese, Other (DOES NOT APPEAR ILL OR TO BE IN ANY DISCOMFORT OR DISTRESS) HEENT: PERRL/EOMI, TMs Normal, Pharynx Normal, Moist Mucous Membranes; No Photophobia; Other (MILD LEFT MAXILLARY SINUS SWELLING AND TENDERNESS. SLIGHT NASAL CONGESTION. NO DRAINAGE. ) Neck: Full Range of Motion, Normal Inspection, Non Tender, Supple Respiratory: Normal Breath Sounds, No Accessory Muscle Use, No Respiratory Distress Cardiovascular: Regular Rate, Rhythm, No Edema, No JVD, No Murmur, Normal Peripheral Pulses Gastrointestinal: Non Tender, Soft Back: No CVA Tenderness Extremity: Normal Inspection Neurologic/Psychiatric: Alert, Oriented x3, No Motor/Sensory Deficits, Normal Mood/Affect, tech writer II-XII Norm as Tested Skin: Normal Color, Warm/Dry Progress/Results/Core Measures Suspected Sepsis SIRS Temperature: Pulse: Respiratory Rate: Blood Pressure / Mean: Results/Orders My Orders Orders - KATHYA GIL DO Chest 1 View, Ap/Pa Only (03/28/21 21:18) Vital Signs/I&O 03/28/21 03/28/21 21:08 22:00 Temp 36.4 Pulse 110 98 Resp 22 20 B/P (MAP) 180/117 (138) 148/108 Pulse Ox 98 98 O2 Delivery Room Air Room Air Capillary Refill : Progress Note : Progress Note PLACED IN ISOLATION ROOM PPE WORN PT ESSENTIALLY ASYMPTOMATIC DURING ER STAY NO COUGH NO DYSPNEA NO HYPOXIA NO FEVER NO GI SYMPTOMS Diagnostic Imaging Comments CXR--PER RADIOLOGIST REPORT AT 2154 FINDINGS: Heart size and mediastinal contours are unremarkable. There is no identified pneumothorax. There is no large pleural effusion. There is no identified focal airspace consolidation. IMPRESSION: No identified acute cardiopulmonary abnormality. Reviewed: Reviewed by Me Departure Impression Primary Impression: COVID-19 virus infection Disposition: HOME, SELF-CARE Condition: Stable Departure-Patient Inst. Decision time for Depature: 21:55 [facility] ([facility]Family) Primary Care Physician Patient Instructions: COVID-19 (DC), Preventing the Spread of an Infectious Disease Add. Discharge Instructions: TYLENOL 1 GRAM PLUS MOTRIN 800 MG 4 TIMES A DAY FOR PAIN OR FEVER LOTS OF CLEAR LIQUIDS KEEP YOUR APPOINTMENT ON SATURDAY FOR MONOCLONAL ANTIBODY INFUSION FOLLOW UP WITH [facility] NEEDED, RETURN TO ER IF SYMPTOMS WORSEN Scripts Dexamethasone (Decadron) 6 Mg Tablet 6 MG PO DAILY, #10 TAB Prov: KATHYA GIL DO 03/28/21 Fluticasone Propionate (Flonase Allergy Relief) 9.9 Ml [place].susp 2 SPRAY NS DAILY, #1 EACH 2 SPRAYS PER NOSTRIL DAILY X 2 DAYS THEN 1 SPRAY DAILY Prov: KATHYA GIL DO 03/28/21 KATHYA GIL DO Mar 28, 2021 21:56
[2021-03-28 22:00] VITALS: BP 148/108
== END 2021-03-28 22:00 | disposition home or self-care (01) ==
LOC: EDUNIT# 20:53 → ER 20:59
DX: U07.1 COVID-19 (principal); I10 Essential (primary) hypertension; E66.9 Obesity, unspecified; Z79.899 Other long term (current) drug therapy; Z73.0 Burn-out
CPT/HCPCS: 71045

== ENCOUNTER 2021-03-30 10:14 | Outpatient (CLI) | payer MEDICAID ==
[~2021-03-30] VITALS: Ht 170.2 cm; Wt 129.3 kg
[~2021-03-30 10:14] MED LIST changes: +DEXA6TAB6 PO; +FLUT9.9S NS
[2021-03-30 10:28] VITALS: BP 143/87
[2021-03-30] MEDS ORDERED: ACETAMINOPHEN 500 MG TAB (TYLENOL) PO PRN (10:30)
[2021-03-30] MEDS ORDERED: EPINEPHrine INJECTION 1 MG/ML AMP IM PRN (10:30)
[2021-03-30] MEDS ORDERED: ONDANSETRON 4 MG/2 ML (SDV) Z0FRAN IV PRN (10:30)
[2021-03-30] MEDS ORDERED: diphenhydrAMINE 50 MG/ML INJ (BENADRYL) IV PRN (10:30)
[2021-03-30] MEDS ORDERED: BAMLANIVIMAB 700 MG/ETESEVIMAB 1,400 MG IN NS IV ONE ×3 (10:30)
[2021-03-30 11:33] VITALS: BP 128/106
== END 2021-03-30 11:36 | disposition home or self-care (01) ==
LOC: INFUSION 10:14
PROVIDERS: ATTEND Nurse Practitioner Family
DX: U07.1 COVID-19 (principal)